=== PATIENT | female | born 1965 | race Caucasian/White ===

== ENCOUNTER 2019-04-16 10:44 | Emergency (ER) | payer OTHER ==
[2019-04-16 10:56] VITALS: BP 115/70
--- NOTE | 2019-04-16 11:50 | ED ---
Respiratory - HPI Summary HPI Summary: Ms. Hahn had URI symptoms about a month ago. She developed a productive cough which has seemed to be improved in the last week. In the last few days she's had an anterior chest uncomfortable achiness returning. She states that the only thing that aggravates it is when she has a coughing spell. She denies any shortness of breath and the pain is not pleuritic. She's been taking care of her and confirmed father who also had the cough a few weeks ago and was treated with antibiotics with quick resolution. - History of Current Complaint Chief Complaint: UCRespiratory Stated Complaint: cough Time Seen by Provider: 04/16/19 11:01 Hx Obtained From: Patient Onset/Duration: Gradual Onset, Lasting Days Timing: Constant Initial Severity: Mild Current Severity: Moderate Pain Intensity: 4 Character: Cough (Nonproductive) Aggravating Factor(s): Other - cough Alleviating Factor(s): Nothing - Allergy/Home Medications Allergies/Adverse Reactions: Allergies Allergy/AdvReac Type Severity Reaction Status Date / Time erythromycin base Allergy Hives Verified 04/16/19 10:58 Penicillins Allergy Hives Verified 04/16/19 10:58 thimerosal Allergy Anaphylatic Verified 04/16/19 10:58 Shock Home Medications: Home Medications GuaiFENesin DM* [Robitussin DM*] 10 ml PO ONCE PRN 04/16/19 [History Confirmed 04/16/19] Imiquimod 1 applic TOPICAL DAILY 04/16/19 [History Confirmed 04/16/19] PMH/Surg Hx/FS Hx/Imm Hx Endocrine/Hematology History: Denies: Hx Diabetes, Hx Thyroid Disease Cardiovascular History: Denies: Hx Hypertension Respiratory History: Reports: Hx Asthma - exercied induced Denies: Hx Chronic Obstructive Pulmonary Disease (COPD) GI History: Denies: Hx Ulcer - Cancer History Cancer Type, 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 - Surgical History Surgery Procedure, Year, and Place: [place] teeth Infectious Disease History: No Infectious Disease History: Denies: Hx Hepatitis, Hx Human Immunodeficiency Virus (HIV), Traveled Outside the [place] in Last 30 Days - Social History Alcohol Use: Rare Substance Use Type: Reports: None Smoking Status (MU): Never Smoked Tobacco Review of Systems Constitutional: Negative ENT: Negative Cardiovascular: Negative Positive: Chest Pain - just the discomfort as described Positive: Cough Gastrointestinal: Negative All Other Systems Reviewed And Are Negative: Yes Physical Exam - Summary Physical Exam Summary: She is nontoxic in appearance with stable vital signs. Triage Information Reviewed: Yes Vital Signs On Initial Exam: Initial Vitals Temp Pulse Resp BP Pulse Ox 98.7 F 70 18 115/70 100 04/16/19 10:49 04/16/19 10:49 04/16/19 10:49 04/16/19 10:49 04/16/19 10:49 Vital Signs Reviewed: Yes Appearance: Positive: Well-Appearing Skin: Positive: Warm, Skin Color Reflects Adequate Perfusion, Dry Eyes: Positive: Normal ENT: Positive: Normal ENT inspection Neck: Positive: Supple Respiratory/Lung Sounds: Positive: Clear to Auscultation Cardiovascular: Positive: Normal, RRR, Pulses are Symmetrical in both Upper and Lower Extremities Abdomen Description: Positive: Nontender Musculoskeletal: Positive: Normal Diagnostics - Vital Signs Vital Signs Temp Pulse Resp BP Pulse Ox 04/16/19 10:49 98.7 F 70 18 115/70 100 - Laboratory Lab Statement: Any lab studies that have been ordered have been reviewed, and results considered in the medical decision making process. Disposition - Course Course Of Treatment: Ms. Hahn is a little bit equivocal about her symptomatology. She is clearly concerned that she has had difficulty getting rid of this cough and that now it appears to be recurring. An EKG was obtained here and was normal. Chest x-ray was also unremarkable. I'm going to give her a steroid inhaler to see if this will relieve residual inflammation from her recent infection and allow her to stop coughing and aggravating things. She understands that if her symptoms worsen or change she should follow up immediately. - Diagnoses Provider Diagnoses: Bronchitis Discharge ED - Sign-Out/Discharge Documenting (check all that apply): Patient Departure All imaging exams completed and their final reports reviewed: Yes - Discharge Plan Condition: Stable Disposition: HOME Patient Education Materials: Acute Bronchitis (ED) Referrals: Angelia Medel MD [Primary Care Provider] - - Billing Disposition and Condition Condition: STABLE Disposition: Home
== END 2019-04-16 12:20 | disposition home or self-care (01) ==
LOC: UCEAST 10:44
DX: J40 Bronchitis, not specified as acute or chronic (principal); J45.909 Unspecified asthma, uncomplicated; Z88.0 Allergy status to penicillin; Z88.1 Allergy status to other antibiotic agents; Z88.8 Allergy status to other drugs, medicaments and biological substances
CPT/HCPCS: 71046; 93005; 99212; G0463

== ENCOUNTER 2019-09-18 19:18 | Emergency (ER) | payer OTHER ==
--- OUTSIDE RECORDS SUMMARY | 2019-09-18 21:17 | XMS REPORT | Summary of Care ---
:1965 Author Organization [facility] Address [address] [place] [address] Care Team Providers Name Role Phone Angelia Medel Primary Care Provider Reason for Visit Reason Comments Follow Up AUB - polyp? Encounter Details Date Type Department Care Team Description 09/05/2019 Office Visit [facility] ROOM OPERATOR/Midwives Genaro Gaxiola MD PMB (postmenopausal [address] bleeding) (Primary Dx) [place] [id number] [place] [address] [phone] Allergies Active Allergy Reactions Severity Noted Date Comments Penicillins Hives 12/17/2008 Thimerosal Other, Anaphylaxis 04/19/2008 documented as of this encounter (statuses as of 09/05/2019) Medications Medication Sig Dispensed Refills Start Date End Date Status acetaminophen (TYLENOL) Take 650 mg by 0 Active 325 MG Oral Tab mouth EVERY FOUR HOURS NEEDED. Ibuprofen (ADVIL) 200 Take 600 mg by 0 Active MG Oral Cap mouth NEEDED. Multiple Vitamin Take by mouth 0 Active (MULTI-VITAMIN PO) DAILY. Saccharomyces boulardii Take by mouth 0 Active (FLORASTOR PO) DAILY. albuterol HFA Take 2 Puffs by 1 Inhaler 2 11/22/2017 Active (VENTOLIN) 108 (90 inhalation EVERY Base) MCG/ACT FOUR HOURS Inhalation Aero Soln NEEDED (Shortness of breath/wheezing). CLOBETASOL PROP by Apply 0 Active CREA-COAL TAR EX externally route DAILY. Imiquimod 5 % Apply by Apply 0 Active externally Cream externally route. mesalamine (CANASA) Place 1,000 mg 0 Active 1000 MG Rectal Suppos per rectum DAILY. MISC NATURAL PRODUCTS Take by mouth. 0 Active POIndications: Kazakh Indications: Herbal Tea Kazakh Herbal Tea predniSONE (DELTASONE) Take 2 Tabs by 30 Tab 0 08/16/2019 Active 5 MG Oral Tab mouth DAILY. 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 documented as of this encounter (statuses as of 09/05/2019) Immunizations Name Administration Dates Next Due Influenza (IM) Preservative Free 04/24/2019, 04/30/2018, 06/11/2016, 05/25/2014, 06/12/2013, 07/08/2010 Influenza Vaccine Whole 04/17/2017, 05/02/2009 Influenza Virus Vaccine Pres Free 04/18/2012 6-35 Months documented as of this encounter Social History Tobacco Use Types Packs/Day Years Used Date Never Smoker Smokeless Tobacco: Never Used Alcohol Use Drinks/Week oz/Week Comments Not Currently 0 Standard drinks or equivalent 0.0 rarely Sex Assigned at Date Recorded Not on file documented as of this encounter Last Filed Vital Signs Not on filedocumented in this encounter Progress Notes Genaro Gaxiola MD - 09/05/2019 11:40 AM ESTPt presents for a single episode of POST MENOPAUSAL BLEEDING, lasting 3d. She had been previously diagnosed with an endometrial polyp by ultrasound Advised biopsy. An attempt at an office biopsy was unsuccessful due to nulliparity, cervical stenosis. Patient was advised to proceed to hysteroscopy/D &C, polypectomy F/U at pre-op documented in this encounter Plan of Treatment Date Type Specialty Care Team Description 10/03/2019 Office Visit education spec Genaro Gaxiola MD [address] [place] [address] 10/11/2019 Hospital Encounter [facility] Genaro Gaxiola Short Procedure [address] [place] [address] 10/11/2019 Surgery [facility] Genaro Gaxiola HYSTEROSCOPY, DILATATION AND 1 [address] CURETTAGE [place] [address] 10/26/2019 Office Visit education spec Genaro Gaxiola MD [address] [place] [address] Name Type Priority Associated Diagnoses Order Schedule CASE REQUEST OPERATING Procedures Routine PMB (postmenopausal Ordered: 09/2019 ROOM bleeding) Health Maintenance Due Date Last Done Comments PNEUMOCOCCAL 0-64 YRS (1 of 1971 3 - PCV13) DTaP/Tdap/Td Vaccines (1 - 02/22/1976 Tdap) ZOSTER IMMUNIZATION SERIES 2015 (1 of 2) DEPRESSION SCREENING 01/19/2020 01/18/2019 DIABETES SCREENING 08/01/2020 08/01/2019, 08/29/2018, 10/20/2017, Additional history exists Colonoscopy 01/19/2021 01/19/2018 LIPID DISORDER SCREENING 07/22/2022 07/22/2017, 12/25/2008 HEPATITIS C SCREENING Completed 06/12/2013 INFLUENZA VACCINE Completed 04/24/2019, 04/30/2018, 04/17/2017, Additional history exists HEPATITIS A IMMUNIZATION Aged Out No longer eligible SERIES based on patient's age to complete this topic HPV IMMUNIZATION SERIES Aged Out No longer eligible based on patient's age to complete this topic MENINGOCOCCAL VACCINE IMM Aged Out No longer eligible based on patient's age to complete this topic documented as of this encounter Results Not on filedocumented in this encounter Visit Diagnoses Diagnosis PMB (postmenopausal bleeding) Postmenopausal bleeding Diagnosis PMB (postmenopausal bleeding) Postmenopausal bleeding Diagnosis PMB (postmenopausal bleeding) Postmenopausal bleeding documented in this encounter Insurance Payer Benefit Plan / Subscriber ID Effective Dates Phone Address Type Group AETNA COMMERCIAL AETNA [facility] [id number] 2016-Present Aetna Guarantor Name Account Type Relation to Date of Phone Billing Patient Address JovaniMisty Personal/Family 1965 [address] (Home) [place], [place] [phone] (Work) documented as of this encounter Advance Directives Type Date Recorded 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
--- OUTSIDE RECORDS SUMMARY | 2019-09-18 21:17 | XMS REPORT | Summary of Care ---
:1965 Author Organization [facility] Address [address] [place] [address] Care Team Providers Name Role Phone Angelia Medel Primary Care Provider Reason for Visit Reason Comments Rectal Bleeding Pt. complaining of continued rectal bleeding. Encounter Details Date Type Department Care Team Description 08/24/2019 Office Visit [facility]/He Renetta Urbano NP rectosigmoiditis with patology 1 [facility] complication (HCC) [address] [place] [address] (Primary Dx) [place] [address] [phone] Allergies Active Allergy Reactions Severity Noted Date Comments Penicillins Hives 12/17/2008 Thimerosal Other, Anaphylaxis 04/19/2008 documented as of this encounter (statuses as of 08/24/2019) Medications Medication Sig Dispensed Refills Start Date [...] PRODUCTS Take by mouth. 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 documented as of this encounter (statuses as of 08/24/2019) Immunizations Name Administration Dates Next Due Influenza [...] of this encounter Last Filed Vital Signs Vital Sign Reading Time Taken Comments Blood Pressure 102/70 08/24/2019 1:55 PM EST Pulse 66 08/24/2019 1:55 PM EST Temperature 36 08/24/2019 1:55 PM EST C (96.8 F) Respiratory Rate - - Oxygen Saturation - - Inhaled Oxygen Concentration - - Weight 70.3 kg (155 lb) 08/24/2019 1:55 PM EST Height 167.6 cm (5' 6") 08/24/2019 1:55 PM EST Body Mass Index 25.02 08/24/2019 1:55 PM EST documented in this encounter Patient Instructions Patient InstructionsRenetta Joshua NP - 08/24/2019 1:40 PM EST1. Increase the prednisone as directed, see taper instructions below Decrease Prednisone: 40 mg daily for 5 days then 30 mg daily for 5 days Then 20 mg daily for 5 days Then 15 mg daily for 5 days Then 10 mg daily for 5 days Then 5 mg daily for 5 days Then STOP Pednisone 2. Follow up if no improvement in the next 2 weeks Thank you for choosing the [facility] for your needs today! -Renetta Joshua N.P. , Please call if you need to cancel or change your appt. time. Thank you for choosing [facility] for your health care needs, and for consulting with [facility] today. You may receive a survey following this visit, or after an upcoming hospital stay. As easy as it is to feel overloaded with surveys, we are required to send them out randomly and they do provide important feedback so that we may serve your needs in the best way. Please do take the few minutes required to complete the survey if you receive one. We get them too, after seeing the doctor, and they only take a few minutes to complete. documented in this encounter Progress Notes Renetta Joshua NP - 08/24/2019 1:40 PM EST PATIENT: Misty Hahn : 1965 DATE OF SERVICE: 08/24/2019 REFERRING PRACTITIONER: Angelia Medel PRIMARY CARE PROVIDER: Angelia Medel CHIEF COMPLAINT: Chief Complaint Patient presents with ? Rectal Bleeding Pt. complaining of continued rectal bleeding. Subjective HISTORY OF PRESENT ILLNESS: Misty Hahn is a 54-y.o. female who presents for a follow-up of ulcerative colitis. Recently flaring, reports mild LLQ pain, rectal bleeding, diarrhea and fecal urgency. No relief from Prednisone 10mg for the past 1 month, this has worked for her in the past. She declined oral Mesalamines, reports she did not tolerate these in the past. Stool testing negative for infection. She is also under a lot of stress recently as she is caring for her elderly father. She denies fatigue, nausea, vomiting, melena, hematemesis, constipation, jaundice, fevers, chills, night sweats, weight loss, easy bruising, chest pain, shortness of breath, dysuria, hematuria, pyuria, joint pains, acholic stools, dark urine or systemic pruritis. Current Outpatient Medications Medication Sig ? acetaminophen (TYLENOL) 325 MG Oral Tab Take 650 mg by mouth EVERY FOUR HOURS NEEDED. ? albuterol HFA (VENTOLIN) 108 (90 Base) MCG/ACT Inhalation Aero Soln Take 2 Puffs by inhalation EVERY FOUR HOURS NEEDED (Shortness of breath/ wheezing). ? CLOBETASOL PROP CREA-COAL TAR EX by Apply externally route DAILY. ? Ibuprofen (ADVIL) 200 MG Oral Cap Take 600 mg by mouth NEEDED. ? Imiquimod 5 % Apply externally Cream by Apply externally route. ? mesalamine (CANASA) [address] 1,000 mg per rectum DAILY. ? MISC NATURAL PRODUCTS PO Take by mouth. Indications: Ethiopian Herbal Tea ? Multiple Vitamin (MULTI-VITAMIN PO) Take by mouth DAILY. ? predniSONE (DELTASONE) 5 MG Oral Tab Take 2 Tabs by mouth DAILY. ? predniSONE (DELTASONE) 5 MG Oral Tab Take 40 mg daily x 5 days,30 mg daily x 5 days,20 mg daily x 5 days,15 mg daily x 5 days,10 mg daily x 5 days, 5 mg daily x5 days, then stop ? Saccharomyces boulardii (FLORASTOR PO) Take by mouth DAILY. No current facility-administered medications for this visit. Allergies Allergen Reactions ? Penicillins Hives ? Thimerosal Other and Anaphylaxis REVIEW OF SYSTEMS: All remaining review of systems was negative except for as noted in the history of present illness/subjective. Objective PHYSICAL EXAMINATION: VITALS: BP 102/70 | Pulse 66 | Temp 96.8 F (36 C) | Ht 5' 6" (1.676 m) | Wt 155 lb (70.3 kg) | LMP 03/04/2016 | BMI 25.02 kg/m Body mass index is 25.02 kg/m. GENERAL: alert, oriented, no acute distress. HEENT: No scleral icterus, MMM Psych: Affect normal Neck: no lymphadenopathy LUNGS: clear to auscultation bilaterally. HEART: regular rhythm, no murmurs, no gallops, no rubs. ABDOMEN: general exam: soft, non-tender, non-distended, without masses or organomegaly, normal active bowel sounds, Willett's sign negative. Extrmities: no edema Skin: clear Neuro: gait normal, a&o x 3 RECTAL: exam deferred. . IMPRESSION: ICD-9-CM ICD-10-CM 1. Ulcerative rectosigmoiditis with complication ([facility]) 556.3 K51.319 predniSONE (DELTASONE) 5 MG Oral Tab Plan PLAN: Patient Instructions 1. Increase the prednisone as directed, see taper instructions below Decrease Prednisone: 40 mg daily for 5 days then 30 mg daily for 5 days Then 20 mg daily for 5 days Then 15 mg daily for 5 days Then 10 mg daily for 5 days Then 5 mg daily for 5 days Then STOP Pednisone 2. Follow up if no improvement in the next 2 weeks Thank you for choosing the [facility] for your needs today! -Renetta Joshua NRochellePRochelle , Please call if you need to cancel or change your appt. time. Thank you for choosing [facility] for your health care needs, and for consulting with [facility] today. You may receive a survey following this visit, or after an upcoming hospital stay. As easy as it is to feel overloaded with surveys, we are required to send them out randomly and they do provide important feedback so that we may serve your needs in the best way. Please do take the few minutes required to complete the survey if you receive one. We get them too, after seeing the doctor, and they only take a few minutes to complete. 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 database developer Genaro Gaxiola MD [address] [place] [address] [phone] Health Maintenance Due Date Last Done Comments PNEUMOCOCCAL 0-64 YRS (1 of 1971 3 - PCV13) DTaP/Tdap/Td Vaccines ( - 02/22/1976 Tdap) ZOSTER IMMUNIZATION SERIES 2015 [...] filedocumented in this encounter Visit Diagnoses Diagnosis Ulcerative rectosigmoiditis with complication (HCC) documented in this encounter Insurance Payer Benefit Plan / Subscriber ID Effective Dates Phone Address Type Group AETNA COMMERCIAL AETNA [facility] [id number] 2016-Present Aetna Guarantor Name Account Type Relation to Date of Phone Billing Patient Address Misty Hahn Personal/Family 1965 [phone] [address] (Home) [place], [place] [phone] (Work) documented as of this encounter Advance Directives Type Date Recorded 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
--- OUTSIDE RECORDS SUMMARY | 2019-09-18 21:17 | XMS REPORT | Summary of Care ---
:1965 Author Organization [facility] Address [address] [place] [address] Care Team Providers Name Role Phone Angelia Medel Primary Care Provider Reason for Visit Reason Comments Follow-up Follow-up to recent UC flare. Encounter Details Date Type Department Care Team Description 08/01/2019 Office Visit [facility] Gastro[facility]ology/He Renetta Urbano NP rectosigmoiditis with patology 1 [facility] complication (HCC) [address] [place] [address] (Primary Dx) [place] [address] [phone] Allergies Active Allergy Reactions Severity Noted Date Comments Penicillins Hives 12/17/2008 Thimerosal Other, Anaphylaxis 04/19/2008 documented as of this encounter (statuses as of 08/01/2019) Medications Medication Sig Dispensed Refills Start Date End Date Status acetaminophen Take 650 mg by 0 Active (TYLENOL) 325 MG Oral mouth EVERY FOUR Tab HOURS NEEDED. Ibuprofen (ADVIL) 200 Take 600 mg by 0 Active MG Oral Cap mouth NEEDED. Multiple Vitamin Take by mouth 0 Active (MULTI-VITAMIN PO) DAILY. Saccharomyces Take by mouth 0 Active boulardii (FLORASTOR DAILY. PO) albuterol HFA Take 2 Puffs by 1 [...] PRODUCTS Take by mouth. 0 Active POIndications: Indications: Tongan Herbal Tea Tongan Herbal Tea predniSONE Take 2 Tabs by 21 Tab 0 08/01/2019 08/15/2019 Active (DELTASONE) 5 MG Oral mouth DAILY AND 1 Tab Tab DAILY. Do all this for 14 days. 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 documented as of this encounter Last Filed Vital Signs Vital Sign Reading Time Taken Comments Blood Pressure 118/78 08/01/2019 9:54 AM EST Pulse 72 08/01/2019 9:54 AM EST Temperature 36.1 08/01/2019 9:54 AM EST C (97 F) Respiratory Rate - - Oxygen Saturation - - Inhaled Oxygen Concentration - - Weight 70.3 kg (155 lb) 08/01/2019 9:54 AM EST Height 167.6 cm (5' 6") 08/01/2019 9:54 AM EST Body Mass Index 25.02 08/01/2019 9:54 AM EST documented in this encounter Patient Instructions Patient InstructionsRenetta Joshua NP - 08/01/2019 9:40 AM EST1. Continue Prednisone 10mg daily for 1 week, then 5mg daily for 1 week 2. Continue Canasa as directed 3. Labs today 4. Follow up if no improvement in symptoms in the next 1 week If you have not already been screened for Hepatitis C we would be happy to do that for you today. Currently we recommend screening for hepatitis C virus (HCV ) infection in persons at high risk for infection, and to adults born between 1945 and 1964. Thank you for choosing the [facility] for your needs today! -Renteta Joshua N.P. , Please call if you need to cancel or change your appt. time. Thank you for choosing [facility] for your health care needs, and for consulting with [facility] today. You may receive a survey [...] encounter Progress Notes Renetta Joshua NP - 08/01/2019 9:40 AM EST PATIENT:Misty Hahn : 1965 DATE OF SERVICE:08/01/2019 Chief Complaint Patient presents with Follow-up Follow-up to recent UC flare. REFERRING PROVIDER: Angelia Medel PRIMARY CARE PHYSCIAN: Angelia Medel SUBJECTIVE: Misty Hahn is a very pleasant 54-y.o. female who presents for routine follow up of Ulcerative Colitis. Currently she moves her bowels 5 times per day, normal is 2 times per day. Symptoms began approx 1 week ago and are associated with a very stressful time period. She reports her father is ill and she has been in and out of the hospital with him. She reports starting Prednisone 2 days ago and already is feeling relief, but ran out and is in need of more. She denies oral ulcers, skin ulcers, back pain, red eyes, burning or itching of eyes, vision changes, fevers, chills, night-sweats, weight loss, nausea, vomiting, melena, hematochezia, hematemesis, dysuria, pyuria, hematuria, joint pains, acholic or dory colored stools or dark urine. 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 ENVIRONMENTAL ALLERGIES Postmenopausal Ulcerative colitis Past Surgical History: Procedure Laterality Date COLONOSCOPY 09/28/2014 3 Year F/U history of ulcerative proctitis Social History Socioeconomic History Marital status: Single Spouse name: Not on file Number of children: Not on file Years of education: Not on file Highest education level: Not on file Occupational History Not on file Social Needs Financial resource strain: Not on file Food insecurity Worry: Not on file Inability: Not on file Transportation needs Medical: Not on file Non-medical: Not on file Tobacco Use Smoking status: Never Smoker Smokeless tobacco: Never Used Substance and Sexual Activity Alcohol use: Not Currently Alcohol/week: 0.0 standard drinks Comment: rarely Drug use: No Sexual activity: Not Currently Lifestyle Physical activity Days per week: Not on file Minutes per session: Not on file Stress: Not on file Relationships Social connections Talks on phone: Not on file Gets together: Not on file Attends christian service: Not on file Active member of club or organization: Not on file Attends meetings of clubs or organizations: Not on file Relationship status: Not on file Intimate partner violence Fear of current or ex partner: Not on file Emotionally abused: Not on file Physically abused: Not on file Forced sexual activity: Not on file Other Topics Concern Back Care Not Asked Bike Helmet Not Asked Blood Transfusions Not Asked Caffeine Concern Not Asked Exercise No Hobby Hazards No International Travel Yes Service Not Asked Occupational Exposure Not Asked Seat Belt Yes Self-Exams Yes Sleep Concern Not Asked Special Diet Not Asked Stress Concern Not Asked Weight Concern Not Asked Social History Narrative Infertility undergoing 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 albuterol HFA (VENTOLIN) 108 (90 Base) MCG/ACT Inhalation Aero Soln Take 2 Puffs by inhalation EVERY FOUR HOURS NEEDED (Shortness of breath/wheezing) . CLOBETASOL PROP CREA-COAL TAR EX by Apply externally route DAILY. Ibuprofen (ADVIL) 200 MG Oral Cap Take 600 mg by mouth NEEDED. Imiquimod 5 % Apply externally Cream by Apply externally route. mesalamine (CANASA) [address] 1,000 mg per rectum DAILY. MISC NATURAL PRODUCTS PO Take by mouth. Indications: Tongan Herbal Tea Multiple Vitamin (MULTI-VITAMIN PO) Take by mouth DAILY. predniSONE (DELTASONE) 5 MG Oral Tab Take 2 Tabs by mouth DAILY AND 1 Tab DAILY. Do all this for 14 days. Saccharomyces boulardii (FLORASTOR PO) Take by mouth DAILY. No current facility-administered medications for this visit. REVIEW OF SYSTEMS Negative, except that mentioned above. OBJECTIVE: BP 118/78 | Pulse 72 | Temp 97 F (36.1 C) | Ht 5' 6" (1.676 m) | Wt 155 lb (70.3 kg) | LMP 03/04/2016 | BMI 25.02 kg/m PHYSICAL EXAM GENERAL: alert, oriented, no acute distress. HEENT: No scleral icterus, MMM Psych: Affect normal Neck: no lymphadenopathy LUNGS: clear to auscultation bilaterally. HEART: regular rhythm, no murmurs, no gallops, no rubs. ABDOMEN: general exam: soft, non-tender, non-distended, without masses or organomegaly, normal active bowel sounds, Willett's sign negative. Extrmities: no edema Skin: clear Neuro: gait normal, a&o x 3 RECTAL: exam deferred. IMPRESSION/PLAN ICD-9-CM ICD-10-CM 1. Ulcerative rectosigmoiditis with complication (HCC) 556.3 K51.319 LIVER FUNCTION PROFILE BASIC METABOLIC PANEL CBC WITH DIFFERENTIAL SEDIMENTATION RATE C-REACTIVE PROTEIN C-REACTIVE PROTEIN SEDIMENTATION RATE CBC WITH DIFFERENTIAL BASIC METABOLIC PANEL LIVER FUNCTION PROFILE Likely more of a functional diarrhea given that 2 days of a low dose prednisone have helped her to feel better is suggestive of a placebo affect however will continue RX for a short taper. Patient Instructions 1. Continue Prednisone 10mg daily for 1 week, then 5mg daily for 1 week 2. Continue Canasa as directed 3. Labs today 4. Follow up if no improvement in symptoms in the next 1 week If you have not already been screened for Hepatitis C we would be happy to do that for you today. Currently we recommend screening for hepatitis C virus (HCV ) infection in persons at high risk for infection, and to adults born between 1945 and 1965. Thank you for choosing the [facility] for your needs today! -Renetta Joshua N.P. , Please call if you need to cancel or change your appt. time. Thank you for choosing [facility] for your health care needs, and for consulting with [facility] today. You may receive a survey [...] only take a few minutes to complete. AUTHOR: Renetta Joshua NP 08/01/2019 11:12 documented in this encounter Plan of Treatment Date Type Specialty Care Team Description 09/04/2019 Office Visit patent clerk Genaro Gaxiola MD [address] [place] [address] [phone] Name Type Priority Associated Diagnoses Date/Time LIVER FUNCTION PROFILE Lab Routine Ulcerative rectosigmoiditis 08/01/2019 10:21 AM with complication (HCC) EST BASIC METABOLIC PANEL Lab Routine Ulcerative rectosigmoiditis 08/01/2019 10 :21 AM with complication (HCC) EST CBC WITH DIFFERENTIAL Lab Routine Ulcerative rectosigmoiditis 08/01/2019 10 :21 AM with complication (HCC) EST SEDIMENTATION RATE Lab Routine Ulcerative rectosigmoiditis 08/01/2019 10: 21 AM with complication (HCC) EST C-REACTIVE PROTEIN Lab Routine Ulcerative rectosigmoiditis 08/01/2019 10: 21 AM with complication (HCC) EST Name Type Priority Associated Diagnoses Order Schedule LIVER FUNCTION PROFILE Lab Routine Ulcerative rectosigmoiditis Expected: with complication (HCC) (Approximate), Expires: 08/15/2019 BASIC METABOLIC PANEL Lab Routine Ulcerative rectosigmoiditis Expected: with complication (HCC) (Approximate), Expires: 08/15/2019 CBC WITH DIFFERENTIAL Lab Routine Ulcerative rectosigmoiditis Expected: with complication (HCC) (Approximate), Expires: 08/15/2019 SEDIMENTATION RATE Lab Routine Ulcerative rectosigmoiditis Expected: 2019 with complication (HCC) (Approximate), Expires: 08/01/2020 C-REACTIVE PROTEIN Lab Routine Ulcerative rectosigmoiditis Expected: 2019 with complication (HCC) (Approximate), Expires: 08/01/2020 Health Maintenance Due Date Last Done Comments PNEUMOCOCCAL 0-64 YRS (1 of 1971 3 - PCV13) DTaP/Tdap/Td Vaccines (1 - 02/22/1976 Tdap) ZOSTER IMMUNIZATION SERIES 2015 (1 of 2) DIABETES SCREENING 08/29/2019 08/29/2018, 10/20/2017, 07/22/2017, Additional history exists DEPRESSION SCREENING 01/19/2020 01/18/2019 Colonoscopy 01/19/2021 01/19/2018 LIPID DISORDER SCREENING 07/22/2022 [...] Phone Address Type Group [employer] [facility] xxxxxxxxxx 2016-Present [employer] Guarantor Name Account Type Relation to Date of Phone Billing Patient Address Misty Hahn Personal/Family 1965 [address] (Home) [place], [place] [phone] [id number] (Work) documented as of this encounter Advance Directives Type Date Recorded Patient Research Associate Policy Explanation Advance Directives 02/07/2018 2:04 PM Health Care Proxy
[2019-09-18 21:49] VITALS: BP 135/91
[2019-09-18 21:55] LABS: Influenza A Molecular Negative (Negative); Influenza B Molecular Negative (Negative)
--- NOTE | 2019-09-18 21:55 | UC ---
FLU HPI - HPI Summary HPI Summary: 54-year-old female presents with one-week history of headache, nasal congestion , sinus pressure, postnasal drip, sore throat, mild chest tightness, and a dry nonproductive cough. Patient has history of exercise-induced asthma however has not needed to use her albuterol inhaler and a couple years. She also has history of ulcerative colitis it is currently on prednisone. States she has been monitoring her temperature which has been normal up until today when she developed a fever of 100.6 F. Reports she traveled to [place] to visit family 2 days before the onset of symptoms however states that of her family members were symptomatic. No known contact with anyone who has been isolated for or diagnosed with COVID-19. Denies ear pain, dysphagia, chest pain, or shortness of breath. - History of Current Complaint Chief Complaint: UCGeneralIllness Stated Complaint: COUGH/FEVER Time Seen by Provider: 09/18/19 21:17 Hx Obtained From: Patient Hx Last Menstrual Period: post Pain Intensity: 4 - Allergy/Home Medications Allergies/Adverse Reactions: Allergies Allergy/AdvReac Type Severity Reaction Status Date / Time erythromycin base Allergy Hives Verified 09/18/19 21:49 Penicillins Allergy Hives Verified 09/18/19 21:49 thimerosal Allergy Anaphylatic Verified 09/18/19 21:49 Shock Home Medications: Home Medications Multivitamin [Multivitamins] 1 cap PO DAILY 04/05/12 [History Confirmed 09/18/19 ] Cholecalciferol (Vitamin D3) [Vitamin D] 1,000 unit PO DAILY 11/20/14 [History Confirmed 09/18/19] Budesonide [Pulmicort Flexhaler] 90 mcg IH BID #1 [email or web address] 04/16/19 [Rx Confirmed 09/18/19] GuaiFENesin DM 100 mg/10 mg [Robitussin DM*] 10 ml PO ONCE PRN 04/16/19 [ History Confirmed 09/18/19] Imiquimod 1 applic TOPICAL DAILY 04/16/19 [History Confirmed 09/18/19] PMH/Surg Hx/FS Hx/Imm Hx Respiratory History: Asthma GI/ History: Other - Ulcerative colitis - Surgical History Surgical History: Yes Surgery Procedure, Year, and Place: [place] teeth - Family History Known Family History: Positive: Other - Stroke - Father - Social History Occupation: Employed Full-time Lives: With Family Alcohol Use: Rare Substance Use Type: None Smoking Status (MU): Never Smoked Tobacco Review of Systems All Other Systems Reviewed And Are Negative: Yes Constitutional: Positive: Fever, Fatigue Skin: Negative: Rash Eyes: Negative: Drainage, Eye Redness ENT: Positive: Sore Throat, Nasal Discharge, Sinus Congestion, Sinus Pain/ Tenderness. Negative: Ear Ache Respiratory: Positive: Cough. Negative: Shortness Of Breath, Other - Wheezing Cardiovascular: Negative: Chest Pain Gastrointestinal: Negative: Abdominal Pain, Vomiting, Diarrhea, Nausea Genitourinary: Positive: Negative Musculoskeletal: Positive: Negative Neurological/Mental Status: Positive: Headache Is Patient Immunocompromised?: No Physical Exam - Summary Physical Exam Summary: GENERAL APPEARANCE: Alert and cooperative adult female who appears to be in no acute distress. EYES: Conjunctiva clear. No drainage. EARS: External auditory canals and tympanic membranes clear, hearing grossly intact. NOSE: Mild nasal congestion without discharge. Maxillary sinus tenderness. THROAT: Pharyngeal erythema without tonsilar inflammation, swelling, exudate, or lesions. Uvula midline. NECK: Neck supple, non-tender without lymphadenopathy. CARDIAC: Normal S1 and S2. No S3, S4 or murmurs. Rhythm is regular. There is no peripheral edema, cyanosis or pallor. Extremities are warm and well perfused. Capillary refill is less than 2 seconds. Peripheral pulses intact. LUNGS: Clear to auscultation without rales, rhonchi, wheezing or diminished breath sounds. Dry, nonproductive, bronchospastic cough. ABDOMEN: Positive bowel sounds. Soft, nondistended, nontender. No guarding or rebound. No masses or hepatosplenomegally. MUSKULOSKELETAL: ROM intact to all extremities. No joint erythema or tenderness. Normal muscular development. Normal gait. SKIN: Skin normal color, texture and turgor with no lesions or eruptions. Triage Information Reviewed: Yes Vital Signs: Initial Vital Signs Temp 99.6 F 09/18/19 21:43 Pulse 102 09/18/19 21:43 Resp 16 09/18/19 21:43 BP 135/91 09/18/19 21:43 Pulse Ox 96 09/18/19 21:43 Vital Signs Reviewed: Yes Flu Course/Dx - Course Course Of Treatment: 54-year-old female presents with one-week history of headache, nasal congestion , sinus pressure, postnasal drip, sore throat, mild chest tightness, and a dry nonproductive cough. Patient has history of exercise-induced asthma however has not needed to use her albuterol inhaler and a couple years. She also has history of ulcerative colitis it is currently on prednisone. States she has been monitoring her temperature which has been normal up until today when she developed a fever of 100.6 F. Reports she traveled to [place] to visit family 2 days before the onset of symptoms however states that of her family members were symptomatic. No known contact with anyone who has been isolated for or diagnosed with COVID-19. Denies ear pain, dysphagia, chest pain, or shortness of breath. Afebrile. Mildly tachycardic otherwise VSS. Patient had mild nasal congestion without discharge, maxillary sinus tenderness, pharyngeal erythema without tonsilar swelling or exudate, no cervical lymphadenopathy, clear bilateral breath sounds, dry, nonproductive, bronchospastic cough, it was unremarkable exam. Rapid strep test and rapid flu tests were negative. Reviewed results with the patient and discussed with her that considering the duration of her symptoms and her immunocompromised status would recommend treating her with a course of antibiotics as well as symptomatic care for an upper respiratory infection with cough. We'll prescribe her doxycycline 100 mg twice a day 10 days. First dose was given in the clinic. Also provided her with an albuterol inhaler and prescription for Tessalon Perles as needed for cough. She is to follow-up with her primary care provider in 3 days if symptoms are not improving. Anticipatory guidance and warning symptoms were reviewed with the patient. Verbalizes understanding and agrees with plan of care. - Differential Dx/Diagnosis Differential Diagnosis/HQI/PQRI: Bronchitis, Influenza, Pneumonia, Upper Respiratory Infection, Other - pharyngitis, tonsilitis, COVID-19 Provider Diagnosis: Upper respiratory infection with cough and congestion Discharge ED - Sign-Out/Discharge Documenting (check all that apply): Patient Departure All imaging exams completed and their final reports reviewed: No Studies - Discharge Plan Condition: Stable Disposition: HOME Patient Education Materials: Upper Respiratory Infection (ED) Referrals: Angelia Medel MD [Primary Care Provider] - 3 Days Additional Instructions: The rapid strep test and rapid flu test performed in the clinic tonight were negative. Your history and exam are consistent with an upper respiratory infection with cough. Considering the duration of your symptoms and your immunocompromised condition we will start you on an antibiotic to treat the infection. Start doxycycline 100 mg twice a day for 10 days. Use albuterol inhaler 2 puffs every 4-6 hours as needed for shortness of breath , wheezing, of coughing fit. Take Tessalon Perles 1 cap every 8 hours as needed for cough. Use a saline rinse kit such as Neti Pot or NeilMed at least twice a day to help thin secretions and promote drainage of the sinuses. Use fluticasone (Flonase) nasal spray 2 sprays each nostril once daily. Take over the counter acetaminophen (Tylenol) or ibuprofen (Advil, Motrin) according to directions as needed for pain or fever. Use salt water gargles several times a day if you have a sore throat. You may also use Chloraseptic spray or Cepacol lonzenges according to directions which contain a numbing medication and can provide some temporary relief from your sore throat. Follow up with your primary care provider in 3 days if symptoms are not improving. Seek immediate medical attention in the emergency room if you have fever greater than 100.5 F despite taking acetaminophen or ibuprofen, have chest pain , difficulty breathing, are unable to swallow, or have any worsening of symptoms. - Billing Disposition and Condition Condition: STABLE Disposition: Home
[2019-09-18] MEDS ORDERED: Benzonatate CAP* 100 MG PO ONE (22:08)
[2019-09-18] MEDS ORDERED: DOXYcycline CAP(*) 100 MG PO ONE (22:08)
[2019-09-18] MEDS ORDERED: Albuterol HFA INHALER* 8 gm MDI INH ONE (22:08)
== END 2019-09-18 22:30 | disposition home or self-care (01) ==
LOC: UCEAST 19:18
DX: J06.9 Acute upper respiratory infection, unspecified (principal); R05 Cough; R09.89 Other specified symptoms and signs involving the circulatory and respiratory systems; J45.909 Unspecified asthma, uncomplicated; K51.90 Ulcerative colitis, unspecified, without complications; Z88.1 Allergy status to other antibiotic agents; Z88.0 Allergy status to penicillin; Z91.09 Other allergy status, other than to drugs and biological substances
CPT/HCPCS: 87651; 99213; A9270-GY; G0463